=== PATIENT | male | born 1960 | race Caucasian/White ===

== ENCOUNTER → 2019-10-10 13:26 | Outpatient (CLI) | payer OTHER, SELFPAY ==
[2019-10-10 13:41] LABS: Bacteria Urine None Seen
[2019-10-10 14:19] LABS: Add Manual Diff / Slide Review NO; Basophils Absolute Auto 100 /uL (0-100); Basophils Percent Auto 0.9 % (0-2); Eosinophils Absolute Auto 200 /uL (0-450); Eosinophils Percent Auto 2.8 % (2-4); Hematocrit 47.4 % (41-53); Hemoglobin 15.7 g/dL (13.5-17.5); Lymphocytes Absolute Auto 2300 /uL (1100-4500); Lymphocytes Percent Auto 31.3 % (25-40); Mean Corpuscular HGB Conc 33.2 % (30-36); Mean Corpuscular Hemoglobin 28.9 PG (26-34); Monocytes Absolute Auto 800 /uL (0-900); Monocytes Percent Auto 10.8 % (3-14); Neutrophils Absolute Auto 4000 /uL (1500-7000); Neutrophils Percent Auto 54.2 % (50-75); Platelet Count 224 X10^3/uL (150-400); Red Blood Cell Count 5.45 X10^6/uL (4.5-5.9); White Blood Cell Count 7.4 X10^3/uL (4.5-11.0)
[2019-10-10 14:25] LABS: Appearance Urine UA CLEAR; Bilirubin Urine UA NEGATIVE (NEGATIVE); Color Urine UA YELLOW; Glucose Urine UA NEGATIVE (Negative); Ketones Urine UA NEGATIVE (NEGATIVE); Leukocyte Esterase Urine UA NEGATIVE (NEGATIVE); Nitrite Urine UA NEGATIVE (Negative); Occult Blood Urine UA NEGATIVE (Negative); Protein Urine UA NEGATIVE (Negative); Urobilinogen Urine UA 0.2 E.U./dL (0.2); pH Urine UA 5.5 (4.5-8.0)
[2019-10-10 14:31] LABS: Culture Indicated Urine Cult Not Indicated; RBC Urine 0-1/HPF (0-5/HPF); Squamous Epithelial Cell Urine 1-5 /HPF (0-5/HPF); WBC Urine 0-1/HPF (0-5/HPF)
[2019-10-10 14:38] LABS: Hemoglobin A1C% w Est Avg Glu 6.8 % (4.0-6.0)
[2019-10-10 15:02] LABS: BUN Creatinine Ratio 29.5 (6-22); Blood Urea Nitrogen 23 mg/dL (9-20); Calcium 9.3 mg/dL (8.4-10.2); Carbon Dioxide 22 mmol/L (22-32); Chloride 103 mmol/L (98-107); Estimated Glomerular Filt Rate > 60.0 mL/min (>60); Glucose 113 mg/dL (80-110); HEMOLYSIS < 15 (0-50); Potassium 4.5 mmol/L (3.4-5.1); Sodium 135 mmol/L (137-145)
== END ==
PROVIDERS: PCP Family Medicine; Referring Provider Family Medicine; Visit Provider Orthopaedic Surgery
DX: Z01.818 Encounter for other preprocedural examination (principal); R73.9 Hyperglycemia, unspecified; N39.0 Urinary tract infection, site not specified
CPT/HCPCS: 36415; 80048; 81001; 83036; 85025; 93005

== ENCOUNTER → 2019-10-22 09:28 | Outpatient (CLI) | payer OTHER, SELFPAY ==
[2019-10-24 13:09] LABS: COVID19 Sendout Not Detected (Not Detect)
== END ==
PROVIDERS: PCP Family Medicine; Visit Provider Nurse Practitioner
DX: Z11.59 Encounter for screening for other viral diseases (principal)
CPT/HCPCS: 87635

== ENCOUNTER 2019-10-25 05:59 | Day surgery (SDC) | payer OTHER, SELFPAY ==
[2019-10-20 10:56] VITALS: BMI 37.5
[2019-10-25] VITALS (18 sets, daily range): BP systolic 114–174; BP diastolic 73–113; PULSE 72–112; RESP 8–20; TEMP 36.1–37.1; O2SAT 89–96; BMI 37.5
--- NOTE | 2019-10-25 | DI.RAD.S_ITS ---
PROCEDURE: XR PELVIS 1-2V INDICATIONS: INTER OP TECHNIQUE: 1 view of the lower pelvis acquired. COMPARISON: None. FINDINGS: Single intraoperative image demonstrating left hip arthroplasty components in expected intraoperative alignment. Dictated by: William Curry M.D. on 10/25/2019 at 12:48 Approved by: William Curry M.D. on 10/25/2019 at 12:48
--- NOTE | 2019-10-25 06:00 | DI.RAD.S_ITS ---
PROCEDURE: XR HIP W PEL IF DONE LT 2V INDICATIONS: post op. TECHNIQUE: AP pelvis with lateral view(s) of the left hip(s). COMPARISON: None. FINDINGS: Bones: No fractures or dislocations. Pelvic ring appears intact. No suspicious bony lesions. Severe right hip joint degeneration with [id number] appearance. Soft tissues: The visualized bowel gas pattern is normal. No suspicious soft tissue calcifications. IMPRESSION: Expected postoperative appearance. Dictated by: William Curry M.D. on 10/25/2019 at 10:59 Approved by: William Curry M.D. on 10/25/2019 at 11:00
[2019-10-25] MEDS: PREGABALIN 75 MG CAPSULE PO (06:58)
[2019-10-25] MEDS: CELECOXIB 200 MG CAPSULE PO (06:58)
[2019-10-25] MEDS: ACETAMINOPHEN 325 MG TABLET 975 MG PO (06:58)
[2019-10-25] MEDS: LACTATED RINGERS 1,000 ML 42 ML IV ×2 (06:59→09:40)
[2019-10-25] MEDS: VANCOMYCIN 1,000 MG/200 ML PIGGYBACK 200 MG IV (07:00)
--- NOTE | 2019-10-25 07:47 | PM.PREOP ---
Pre-operative Note COVID-19 COVID-19 status: Negative Interval Note History & Physical reviewed/Exam performed by Physician: Yes Changes to H&P: No
--- NOTE | 2019-10-25 07:48 | PM.OP.1 ---
Operative Date/Time/Diagnoses Date of procedure: 10/25/19 Time of procedure: 07:58 Pre-op diagnosis: left hip OA Post-op diagnosis: same Procedure & Clinicians Procedure: left total hip arthroplasty Same procedure as scheduled: Yes Indications: The patient has had progressively worsening left hip pain with radiographic changes consistent with arthritis. Non-operative management has failed and the patient has requested total hip replacement. The risks, benefits and alternatives to surgery were discussed with the patient prior to proceeding. Risks discussed included, but were not limited to, failure to relieve pain, leg length discrepancy, dislocation, stiffness, infection, nerve damage, deep venous thrombosis, pulmonary embolism, stroke, coma, heart attack, permanent paralysis and , as well as the potential need for eventual revision of the prosthetic. Surgeon: Yeny Garza Draw Bench Operator Helper: Malcolm Gasca Anesthesia Type: General and Spinal Operative Notes Findings: Severe left hip osteoarthritis, adequate stability Closure Type: primary Specimen(s): none sent Prosthetic devices, grafts, tissues, transplants, or devices: The Garza [employer] Nephew 58 mm R3 cup, one 20 mm screw, neutral poly liner, 9 high offset anthology a fit, +0 head Applied: drain(s) Estimated Blood Loss (mL): 250 Blood products transfused: none Procedure in detail: The patient was seen in the pre-operative area, where the patient identified the left hip as the operative site and this was marked with my initials. The patient received pre-operative antibiotics and was taken to the operating room and placed on the operative table in the right lateral decubitus position after satisfactory anesthesia. A director multimedia out was performed. The left leg was prepared from the ankle to the iliac crest with ChloroPrep in the usual fashion and draped through sterile drapes. The hip was approached through an approximately 20 cm incision centered over the greater trochanter and curving gently posteriorly as it went proximally. This was carried sharply to the fascia eitan, which was divided and retracted with a self retaining retractor. The trochanteric bursa was excised with care being taken to avoid the sciatic nerve, which was identified and protected throughout the case. The short external rotators were incised and the capsulomuscular flap was raised and tagged for later repair. The hip was dislocated, and a femoral neck osteotomy performed approximately 15 mm above the lesser trochanter. Retractors were placed around the femur. The canal was opened with a box cutting osteotome, followed by a T handled reamer and a lateralizing reamer. The chili pepper broach was then used, followed by sequential broaching until there was good stability of the broach in the femur. Retractors were placed to expose the acetabulum. The labrum and central soft tissues were removed. Reaming was performed initially going up in 2 mm increments, then 1 mm increments until good bite was obtained with an odd sized reamer. The cup 1 mm larger than the last reamer was then inserted using the appropriate anteversion guides. It was felt to be in a good position and additional fixation was achieved with a single screw. A trial neutral liner was placed. The broach was placed in the canal. A trial head and neck were then placed and the hip relocated and checked for leg length and stability. An intraoperative film confirmed the component position and no evidence of fracture. The patient was stable in the position of sleep, of squatting, and could be put through a range of motion with 45 degrees internal rotation without dislocation. At 90 degrees flexion, internal rotation to 80? was possible before dislocation. I did a trial with both a standard and a high offset and took an x-ray with the high offset. Had good stability with both but was a little more stable with a high offset. This was felt to be satisfactory and the appropriate components were opened, and the trials were removed. The acetabular liner was impacted into position. The final stem was then impacted into the prepared femoral canal. A brief Betadine soak was performed while trialing with head options. The hip was meticulously irrigated with normal saline. Finally the femoral head was impacted onto the stem. The acetabulum was cleared of all material and the hip relocated one final time. The capsulomuscular flap was then repaired to the greater trochanter though an awl hole using the tag sutures. The short external rotators were repaired with a nonabsorbable suture. A deep drain was placed and brought out anteriorly. The fascia eitan was closed with Vicryl. The subcutaneous layer was closed with barbed sutures and SteriStrips. An dg dressing was applied and the patient was taken to recovery having tolerated the procedure well. Complications: none Post-operative Condition: stable Disposition: Acute Care Plan for aftercare: The patient will be maintained on a standard total hip replacement protocol with weight bearing as tolerated and posterior hip precautions. The patient will receive Aspirin and sequential compression devices for DVT prophylaxis. The patient will be discharged home when safe for the home environment.
[2019-10-25] MEDS: CEFAZOLIN 2 GM/100 ML FROZ.PIGGY IV (08:06)
[2019-10-25] MEDS: TRANEXAMIC ACID 1,000 MG VIAL 1000 MG INJ ×2 (08:20→09:31)
--- NOTE | 2019-10-25 08:32 | SUR.OPER ---
Lateral on padded OR bed. Gel axillary roll. Arms secured on padded armboard with pillow supporting top arm. Padded hip positioner braces x4 - anterior and posterior chest and pelvis. Additional gel pad used anterior pelvis. Gel pad under bottom leg from knee to foot and secured with tape over sheet.
[2019-10-25] MEDS: BUPIVACAINE LIPOSOME 266 MG/20 ML VIAL INJ (08:38)
[2019-10-25] MEDS: BUPIVACAINE 0.25% W/ EPI 30 ML VIAL 60 ML INJ (08:38)
[2019-10-25] MEDS: SODIUM CHLORIDE IRRIG SOLUTION 250 ML, POVIDONE-IODINE SPONGE STICKS 1 APPLIC IRR (08:41)
[2019-10-25] MEDS: fentaNYL 100 MCG/2 ML INJ IV (10:37)
[2019-10-25] MEDS: hydrOXYzine 50 MG/ML INJ 25 MG IM (10:38)
[2019-10-25] MEDS: OXYCODONE IR 5 MG TABLET PO ×2 (10:43→11:05)
--- NOTE | 2019-10-25 11:18 | SUR.PHASEI ---
Patient taken up to room 205 with all belongings. Left in stable condition with receiving RN at bedside
[2019-10-25] MEDS: LACTATED RINGERS 1,000 ML 125 ML IV ×2 (13:44→20:19)
[2019-10-25] MEDS: IBUPROFEN 400 MG TABLET PO ×2 (13:45→17:16)
--- NOTE | 2019-10-25 14:07 | CM.DANOTE ---
Discharge Planning/Care Management DCP: assessment: case received and discussed in Team Rounds. Pt was not yet arrived to room 205 from PACU. Pt is a 59 year old male who admitted this morning for a scheduled L SANCHEZ. Surgeon: Dr. Jacob Garza Payer: [facility] PCP: Samantha Lopez Pt has identified his d/c plan in his pre-op assessment: 10/19 with KELSEY Yung/see that template below: as home with Rafael's supportive care. Note: single story home P: DCP team will be following to assist with any d/c needs that may arise. Expect PT will see pt either later this afternoon or tomorrow for first eval. Dr. Garza states pt will be ready for d/c once he is stable to return to the home setting. CM Discharge Assessment Start: 10/25/19 14:06 Freq: Status: Active Protocol: Document 10/25/19 14:06 ITV (Rec: 10/25/19 14:07 ITV [id number]) Discharge Planning Assessment Advance Directives? No History Provided By Medical Record Prior Living Arrangements House Household Members spouse Review Status In Process Pre-Anesthesia Assessment Start: 10/20/19 10:56 Freq: Status: Active Protocol: Document 10/20/19 10:56 CAB (Rec: 10/20/19 11:24 CAB [id number]) Pre-Anesthesia Assessment Patient Information Reviewed Via Phone Assessment Assessment Completed With Patient Diagnostic Results BMP/CMP,CBC,EKG,Urinalysis Comment Lsbs/EKG @ 10/10/19 COVID screen @ 10/22/19 Primary Care Provider Samantha Lopez Seen Specialist in Last 12 Months Yes Specialist Seen Orthopedist,Urologist Primary Language Cypriot Brush Worker Required No Height 185.42 cm Weight 129.274 kg Body Mass Index (BMI) 37.5 Hearing Ability Normal Visual Assist Glasses Dentition Type Teeth, Natural Present Barriers to Learning Memory Hx Anesthesia Reactions No Hx Family Anesthesia Reaction No Hx Malignant Hyperthermia No Hx Blood Transfusions No Anesthesia Review Requested No alcohol intake former Alcohol Intake Frequency Other: Stopped 30 years ago Smoking Status Never smoker Substance Use Type does not use Pain Present Pain Reported Musculoskeletal Symptoms Abnormal Gait,Difficulty Walking,Joint Pain History of Falling (Recent or History of No ) Patient is completely paralyzed or No completely immobile Prosthesis or Orthotic Device Front Wheel Walker Mental Status Oriented to own ability Is patient on oxygen? No Does patient have BRYANT/SOB No Hx Sleep Apnea No Currently Taking a Beta Alex No Can You Climb a Flight of Stairs Without Yes SOB Hx Chest Pain No Hx SOB No Hx Syncope or Dizziness No Anti-Coagulant Therapy No Has a Licensed Occupational Therapy Assistant No Cardiac Testing No Hx Pacemaker/ICD No Pacemaker Rep Required? No Cardiac Clearance Received Not Applicable Diet Type At Home Regular dysphagia No Gastrointestinal Symptoms Reflux Urinary Catheter Present No Hx Urinary Self Catheterization No Diabetes Pt states pre-diabetes HgbA1C 6.8 Hx Drug Resistant Organism No Presence of External or Internal Medical Yes: Bilat partial knee Devices prosthesis Have you had any close contact with No someone diagnosed with COVID-19? Marital Status Lives With spouse Prior Living Arrangements House Number of Floors (Floors) One Floor Support System Spouse Does the Patient Have Assistance After Yes Surgery Patient Discharge Plan Description Return Home Comment Pt advised one night length of stay per surgeon Feels Safe in Current Environment Yes Been Physically Hurt or Threatened By a No Person in Current Environment Do you have thoughts of harming yourself None or others? Are you currently considering suicide? No Do you have a plan to hurt yourself or No Plan others? Do You Have Any Spiritual Beliefs That No May Affect Your HC Choices? Do You Have Any Cultural Practices That No May Affect Your HC Choices? Comment Evangelical Who Can We Speak to About Patient's Care Family, friends Identifying Code for Release of Patient Declines to issue Information Health Care Proxy/Next of Kin Rafael () Health Care Proxy Emergency Contact Name Rafael () Emergency Contact Advance Directives? No Power of Button Sewer No PAC Instructions Durable medical equipment, Medications to take/avoid, Nasal antibiotic,No ETOH/ petroleum product on skin DOS, NPO,Pre-surgical wash,Sturdy shoes/comfortable clothes,Do not bring valuables and remove jewelry
--- NOTE | 2019-10-25 14:17 | PC.NURSE ---
1200 Patient oxygen saturation dropped to high 70s and mid 80s while sleeping. Aroused patient verbally with success, instructed to take deep breaths. Oxygen saturation back to low 90s. O2 increased to 3LPM temporarily. 1400 Patient alert, sitting up. Oxygen lowered back to 2LPM.
[2019-10-25] MEDS: ACETAMINOPHEN 325 MG TABLET 650 MG PO ×2 (14:42→20:18)
--- NOTE | 2019-10-25 16:19 | PT.IIE ---
Current Diagnoses Unilateral primary osteoarthritis, left hip (10/25/19) Surgery Performed Operation Date: 10/25/19 07:45 Actual Procedures p Total Hip Arthroplasty(Left) - Yeny Garza MD Surgical History (Last Updated 10/20/19 @ 11:13 by Gina Lucia, RN) History of vasectomy (Acute) Hx of elbow surgery (Acute) Hx of eye surgery (Acute) Hx of hernia repair (Acute) Medical History (Last Updated 10/20/19 @ 11:13 by Gina Lucia RN) GERD (gastroesophageal reflux disease) (Acute) History of prosthetic unicompartmental arthroplasty of both knees (Acute) HLD (hyperlipidemia) (Acute) Osteoarthritis (Acute) Pre-diabetes (Acute) Prostatitis (Acute 2020) Skull fracture (Acute) Physical Therapy Inpatient Evaluation/Re-Eval M1 PT/OT-IP Prior Functional Status Start: 10/25/19 14:58 Freq: NEEDED Status: Active Protocol: Document 10/25/19 16:00 HH (Rec: 10/25/19 16:19 [id number]) Medical Review Prior Functional Status Medical History Reviewed Yes Diet/Fluid Consistency Regular Communication able to make needs known. no deficits noted. Mobility and Gait FWW at all times. Very limited mobility for the past few months. Used power scooter for grocery shop. Activities of Daily Living and IADL's independent with FWW for ADLs. Had difficulty getting into bathtub who needed to hang on to wall for support. helps in house cleaning, laundry and cooking mostly. Pt was able to drive. Social History Household Members spouse Living Arrangements House Number of Floors (Floors) One Floor Number of Stairs To Enter/Railing? 1 PF step to enter Pt will sleep in his recliner Home Environment Standard Height Toilet,Tub/ Shower Home Equipment Front Wheel Walker,Straight Cane,Raised Toilet Seat Without Armrests,Long Handled Shoe Horn,Grab Bars In Shower Employment Status Retired Additional Social History Comment Pt lives with his Rafael who is active and independent. 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 Pt also has neighbors to assist if needed. Pt will participate outpatient PT in [place] [id number] PT-IP Current Condition Start: 10/25/19 14:58 Freq: NEEDED Status: Active Protocol: Document 10/25/19 16:00 HH (Rec: 10/25/19 16:19 [id number]) Physical Therapy Current Condition Current Condition Evaluation Date 10/25/19 Treatment Diagnosis L SANCHEZ (posterior approach), difficulty in walking Onset Date 10/25/19 Precautions Posterior Hip Precautions No Hip Flexion > 90 degrees,No Hip Internal Rotation,No Hip Adduction Weight Bearing Status Weight Bearing Status Weight Bear as Tolerated M3 PT-IP Subjective Start: 10/25/19 14:58 Freq: NEEDED Status: Active Protocol: Document 10/25/19 16:00 (Rec: 10/25/19 16:19 [id number]) Subjective Physical Therapy Visit Type Type Initial Evaluation Visit Start Time 15:10 Visit Stop Time 15:36 Total Visit Minutes 26 Number of DIRECT MAIL MARKETER Visits 0 Physical Therapy Visit Comments Patient Comments I am not feeling pain Patient Goals To regain his mobility and return home with assistance Therapy Pain Assessment Pain Present Pain Present Denied Pain M4 PT-IP Mobility and Gait Start: 10/25/19 14:58 Freq: NEEDED Status: Active Protocol: Document 10/25/19 16:00 (Rec: 10/25/19 16:19 [id number]) PT-Transfer Assessment Sit to and From Stand Sit to and from Stand Minimal Assistance,Use of Upper Extremities Equipment Transfer Assistive Device Gait Belt,Front Wheeled Walker Orthotic/Prosthetic Devices or Brace: No Transfers Transfer Destination Bed,Chair Transfer Technique Stand Step Pivot Transfer Ability Level of Assist Minimal Assistance Comments Mobility Comments Pt was standing up finishing voiding with an urinal with nursing staff assist upon PT arrival. pt was handed off to this PT to cont assessment. BP at 134/93 HR 114. Pt stood with a flexed posture and needed cues to facilitate upright position. He then amb around the room with step to pattern and WBOS. He was also able to complete another 120 ft of amb with FWW CGA. He was somewhat impulsive and needed cues to slow down and walker management during turns and transfers. He placed his FWW on the side and walked sideway to chair after he returned to his room, followed by a poor eccentric control for descending. Spent time educating pt not to hurry which increases fall risk. Pt understood well and he was also able to recall all post op precautions. Call light placed within reach. BP 125/89 HR 116. Notified nursing pt's unusual elevated HR. Gait Assessment Gait Gait Assistance Required: Minimum Assistance Distance (Feet) 140 Able to Maintain Weight Bearing Status Yes During Gait Assistive Devices Assistive Device Gait Belt,Front Wheeled Walker Orthotic/Prosthetic Devices or Brace: No Gait Deviations General Gait Pattern Antalgic,Decreased Stride Length,Decreased Feet Clearance,Flexed Trunk,Lateral Trunk Lean,Narrow Based Gait, Step-to Gait Factors Limiting Gait Function Factors Limiting Gait Function Decreased Activity Tolerance, Decreased Strength,Limited Range of Motion,Pain,Poor Balance,Poor Safety Awareness, Respiratory Distress Comments Gait Comments see mobility comments. Stair Climbing Assessment Comments Stair Climbing Comments unable to assess. pt has a 4inch PF step only PT-Balance Assessment Sitting Balance and Reactions Static Sitting Balance Ability Normal Dynamic Sitting Balance Ability Good Standing Balance and Reactions Static Standing Balance Ability Good Dynamic Standing Balance Ability Fair Device Used FWW M5 PT-IP Objective Assessments Start: 10/25/19 14:58 Freq: NEEDED Status: Active Protocol: Document 10/25/19 16:00 (Rec: 10/25/19 16:19 [id number]) Orientation Orientation/Cognition Level of Alertness Alert Orientation Name,Age,Birthday,Month,Date, Year,Day of Week,Place, Situation Language Function Ability No Deficits Noted Safety Awareness Decreased Safety Awareness Memory Description No Deficits Noted Gross Range of Motion Upper Extremity ROM Assessment Within Functional Limits Lower Extremity ROM Assessment Within Functional Limits Strength Upper Extremity Strength Assessment Within Functional Limits Lower Extremity Strength Assessment Left Impaired Comments Strength Comments pt presents a flexed posture with L hip and discomfort for hip extension Coordination Assessment Gross Coordination Gross Coordination WNL Sensation Assessment Sensation Gross Sensation WNL Muscle Tone Muscle Tone WNL Yes M6 PT-IP Treatment Start: 10/25/19 14:58 Freq: NEEDED Status: Active Protocol: Document 10/25/19 16:00 (Rec: 10/25/19 16:19 [id number]) Physical Therapy Treatment Exercises Exercises Gluteal Sets,Quad Sets Education Education Provided Precautions,Weight Bearing Status,Post-Op Packet,Safety M7 PT-IP Assessment and Plan Start: 10/25/19 14:58 Freq: NEEDED Status: Active Protocol: Document 10/25/19 16:00 (Rec: 10/25/19 16:19 [id number]) PT Summary Assessment and Plan Potential Rehabilitation Potential Excellent Status of Condition at Evaluation Stable Summary Impairments Pain,ROM,Strength,Balance,Bed Mobility,Transfers,Gait, Activity Tolerance Assessment Summary This is a low complexity evaluation for this 59yo male s/p POD1 L SANCHEZ with posterior approach. Pt's PLOF has quite limited mobility who needed to use FWW at all times and assisted most IADLs. However, pt was able to complete 120 ft of amb w FWW CGA/min A, min A for transfers but he did need cues for walker management and gait mechanics. Pt has good understanding with post op precautions. Expect pt to return home with assistance and outpatient PT. Goals Bed Mobility Goal Standby Assistance Transfer Goal Standby Assistance,Front Wheeled Walker Gait Goal Standby Assistance,Front Wheel Walker Gait Distance 200 Other Goals 1 PF ZAINA to front entrace with FWW Days to Meet Goals 2 Frequency of Treatment Frequency Of Treatment Twice a Day Treatment Plan Physical Therapy Treatment Plan Bed Mobility Training,Transfer Training,Gait Training, Therapeutic Exercise,Balance Retraining,Post Op Education, Discharge Planning,Hot or Cold Pack,Neuromuscular Re-ed Other Recommendations and Next Treatment check vitals (HR) Focus review precautions mobility as anne, PF step with FWW Recommendations To Nursing Amount of Assist Needed 1 Person Assist Discharge Recommendations PT Discharge Recommendations Home with Assistance, Outpatient PT Other Discharge Recommendations tub transfer bench Transportation Needs at Discharge Private Vehicle
[2019-10-25] MEDS: CEFAZOLIN VIAL 3 GM in SODIUM CHLORIDE 0.9% 100 ML 200 ML IV (16:55)
--- NOTE | 2019-10-25 17:07 | PC.NURSE ---
Addendum entered by Eli Anton R.N. 10/25/19 20:28: Relatively uneventful evening. Pt ambulated in room. Denies any issues w/discomfort. IVF continue as per orders. Dsg CDI. HV intact/patent. Call light w/in reach, bed alarm on for pt safety. Continue w/plan of care. Original Note: Pt Ambulated in hallway w/PT w/out incidence. Denies any discomfort when asked. Lungs clear, SpO2 97% RA YULIANA dsg left hip CDI, Hemavac intact/patent. IV LR @ 100cc/hr infusing via pump into right hand w/o incidence. Sitting in chair for dinner. Call light w/in reach, pt calls appropriately for needs.
[2019-10-25] MEDS: ATORVASTATIN 20 MG TABLET PO (20:18)
[2019-10-25] MEDS: ASPIRIN EC 81 MG TABLET PO (20:18)
[2019-10-25] MEDS: DOCUSATE 100 MG CAPSULE PO (20:18)
[2019-10-26] MEDS: CEFAZOLIN VIAL 3 GM in SODIUM CHLORIDE 0.9% 100 ML 200 ML IV (00:06)
[2019-10-26] MEDS: IBUPROFEN 400 MG TABLET PO ×3 (00:06→08:22)
[2019-10-26 00:16] VITALS: BP 138/79; PULSE 62; RESP 18; TEMP 36.4; O2SAT 95
[2019-10-26 04:00] VITALS: BP 130/74; PULSE 75; RESP 18; TEMP 36.5; O2SAT 94
[2019-10-26 06:41] LABS: Hemoglobin 13.2 g/dL (13.5-17.5)
--- NOTE | 2019-10-26 07:36 | PM.PN.1 ---
Subjective Subjective Date Patient Seen: 10/26/19 Time Patient Seen: 07:37 Interval history: He notes that he is doing well. He did not have difficulty voiding. I some up yesterday with physical therapy. He has fairly mild left hip pain. Exam Vital Signs (past 8 hours): - 10/26/19 00:16 10/26/19 04:00 Temperature 97.6 F 97.7 F Pulse Rate 62 75 Respiratory Rate 18 18 Blood Pressure 138/79 130/74 Pulse Oximetry 95 94 Oxygen Delivery Method Room Air Oxygen Flow Rate 0 Narrative Exam Narrative: Alert oriented moving his hip well, calfs are soft bilaterally, neurologically intact distally dressing is dry Objective Labs Result Diagrams: 10/26/19 06:20 Labs: Laboratory Results - last 24 hr 10/26/19 06:20 Hgb 13.2 L Hct 40.0 L Assessment & Plan Assessment & Plan narrative: Doing well status post left total hip arthroplasty plan discharge to home. Outpatient physical therapy posterior hip precautions. Quality VTE Deep Vein Thrombosis/Pulmonary Embolism Present on Admission: No
[2019-10-26 07:52] VITALS: BP 137/85; PULSE 78; RESP 16; TEMP 36.6; O2SAT 96
--- NOTE | 2019-10-26 07:57 | PC.NURSE ---
Assess- Patient is A&Ox3, dressing to l.hip is cdi with small amount of drainage to center of dg drain dressing. He has a hemovac drain that will be taken out soon as patient will be going home. He is taking ibuprofen and tylenol for discomfort and this has been working well for him. Denies any numbness or tingling to l.extremity. CMS wnl and ppx2.
[2019-10-26] MEDS: DOCUSATE 100 MG CAPSULE PO (08:22)
[2019-10-26] MEDS: ASPIRIN EC 81 MG TABLET PO (08:22)
[2019-10-26] MEDS: ACETAMINOPHEN 325 MG TABLET 650 MG PO (08:23)
--- NOTE | 2019-10-26 11:43 | PT.IPTN ---
Addendum entered and electronically signed by Germania Cast PTA 10/26/19 12:28: Pt was seated in chair, had call light and all needs in reach with and nurse in room when left. Original Note: Current Diagnoses Unilateral primary osteoarthritis, left hip (10/25/19) Surgery Performed Operation Date: 10/25/19 07:45 Actual Procedures p Total Hip Arthroplasty(Left) - Yeny Garza MD Physical Therapy Treatment Note M2 PT-IP Current Condition Start: 10/25/19 14:58 Freq: NEEDED Status: Active Protocol: Document 10/25/19 16:00 HH (Rec: 10/25/19 16:19 HH [id number]) Physical Therapy Current Condition Current Condition Evaluation Date 10/25/19 Treatment Diagnosis L SANCHEZ (posterior approach), difficulty in walking Onset Date 10/25/19 Precautions Posterior Hip Precautions No Hip Flexion > 90 degrees,No Hip Internal Rotation,No Hip Adduction Weight Bearing Status Weight Bearing Status Weight Bear as Tolerated M3 PT-IP Subjective Start: 10/25/19 14:58 Freq: NEEDED Status: Active Protocol: Document 10/26/19 11:23 SP (Rec: 10/26/19 12:19 SP [id number]) Subjective Physical Therapy Visit Type Type Treatment Note Visit Start Time 11:23 Visit Stop Time 11:43 Total Visit Minutes 20 Notes attended, completed caregiver training and provided physical assist needed throughout treatment. Number of DEVULCANIZER OPERATOR Visits 1 Physical Therapy Visit Comments Patient Comments I am feeling 5/10 pain in L hip but want to get up and complete stair training to be able go home with my today. Patient Goals To regain his mobility and return home with assistance Therapy Pain Assessment Pain When Pain Assessed During Mobility Pain Present Pain Present Pain Reported Location left hip Intensity 5 Scale Used soreness at rest, 5/10 during mobility Description Aching,Tightness,With Movement Pain Behaviors Facial Grimacing,Moaning, Restlessness Pain Management Techniques Re-positioning,Timing of Activity with Medications M4 PT-IP Mobility and Gait Start: 10/25/19 14:58 Freq: NEEDED Status: Active Protocol: Document 10/26/19 11:23 SP (Rec: 10/26/19 12:19 SP [id number]) PT-Bed Mobility Assessment Supine to Sit Supine to Sit Standby Assistance,Head of Bed Elevated Scooting Scooting to Edge of Bed Standby Assistance PT-Transfer Assessment Sit to and From Stand Sit to and from Stand Contact Guard Assistance,Use of Upper Extremities Equipment Transfer Assistive Device Gait Belt,Front Wheeled Walker Orthotic/Prosthetic Devices or Brace: No Transfers Transfer Destination Chair Transfer Technique Pt ambulated using fWW Transfer Ability Level of Assist Contact Guard Assistance,Use of Upper Extremities Comments Mobility Comments Pt was elevated supine approx 20 deg in bed when arrived. Pt stated will be sleeping in recliner when gets home due to most comfortable sleeping on his stomach and won't be able to do for now. Sup> sit, scoot to EOB SBA. donned gait belt, sit>stand CGA with cuing for pushing up from bed to stand. Pt didn't walk as far distance into hallway today approx 90 ft total due to L hip pain, provided w/c follow but not needed, step to gait patterning initially then step over step heel toe as distance progressed with heavy BUE WB on FWW, cued upright posture. Pt was able to ascend 3 PF steps CGA by usign FWW, stable to assimulate home enterance. Pt walked back to his room, SPT to sit in chair, cued for fully backing up with FWW and slow descent into chair with good follow through. Pt reported L hip pain elevated during gait and heavy BUE WB on FWW, suggested stay with in when standing activities for safety around home. Pt is ok to return home with to assist him when medically cleared. planned to call outpt PT today to set up appts . Gait Assessment Gait Gait Assistance Required: Contact Guard Assist,1 Person Assist Distance (Feet) 90 Able to Maintain Weight Bearing Status Yes During Gait Assistive Devices Assistive Device Gait Belt,Front Wheeled Walker Orthotic/Prosthetic Devices or Brace: No Gait Deviations General Gait Pattern Antalgic,Decreased Stride Length,Decreased Feet Clearance,Flexed Trunk,Narrow Based Gait,Step-to Gait Factors Limiting Gait Function Factors Limiting Gait Function Decreased Activity Tolerance, Decreased Strength,Limited Range of Motion,Pain,Poor Balance,Poor Safety Awareness, Respiratory Distress Comments Gait Comments See mobility comments for details. Stair Climbing Assessment Evaluation Level of Assist On Stairs Contact Guard Assistance Devices Stair Climbing Assistive Devices Front Wheel Walker Technique/Endurance Stair Climbing Direction Ascend and Descend Stair Climbing Technique Step to Step Number of Steps Climbed 1 Stair Climbing Set # Repetitions (reps) 3 Comments Stair Climbing Comments See mobility comments for details. PT-Balance Assessment Sitting Balance and Reactions Static Sitting Balance Ability Normal Dynamic Sitting Balance Ability Good Standing Balance and Reactions Static Standing Balance Ability Good Dynamic Standing Balance Ability Fair Device Used FWW M5 PT-IP Objective Assessments Start: 10/25/19 14:58 Freq: NEEDED Status: Active Protocol: Document 10/25/19 16:00 HH (Rec: 10/25/19 16:19 HH [id number]) Orientation Orientation/Cognition Level of Alertness Alert Orientation Name,Age,Birthday,Month,Date, Year,Day of Week,Place, Situation Language Function Ability No Deficits Noted Safety Awareness Decreased Safety Awareness Memory Description No Deficits Noted Gross Range of Motion Upper Extremity ROM Assessment Within Functional Limits Lower Extremity ROM Assessment Within Functional Limits Strength Upper Extremity Strength Assessment Within Functional Limits Lower Extremity Strength Assessment Left Impaired Comments Strength Comments pt presents a flexed posture with L hip and discomfort for hip extension Coordination Assessment Gross Coordination Gross Coordination WNL Sensation Assessment Sensation Gross Sensation WNL Muscle Tone Muscle Tone WNL Yes M6 PT-IP Treatment Start: 10/25/19 14:58 Freq: NEEDED Status: Active Protocol: Document 10/26/19 11:23 SP (Rec: 10/26/19 12:19 SP [id number]) Physical Therapy Treatment Exercises Exercises Ankle Pumps,Gluteal Sets,Quad Sets,Heel Slides,Seated Knee Flexion/Extension Education Education Provided Precautions,Weight Bearing Status,Post-Op Packet,Safety M7 PT-IP Assessment and Plan Start: 10/25/19 14:58 Freq: NEEDED Status: Active Protocol: Document 10/26/19 11:23 SP (Rec: 10/26/19 12:19 SP [id number]) PT Summary Assessment and Plan Potential Rehabilitation Potential Excellent Status of Condition at Evaluation Stable Summary Impairments Pain,ROM,Strength,Balance,Bed Mobility,Transfers,Gait, Activity Tolerance Assessment Summary Pt was able to complete caregiver training, all mobility requiring CGA using fWW, ambulated approx 90 ft of amb with cuing for upright posture and step over step patterning. Pt has good understanding with post op precautions. Pt is ok to return home with assistance and outpatient PT when medically cleared. Goals Bed Mobility Goal Standby Assistance Transfer Goal Standby Assistance,Front Wheeled Walker Gait Goal Standby Assistance,Front Wheel Walker Gait Distance 200 Other Goals 1 PF ZAINA to front entrace with FWW- completed 10/26/19. Days to Meet Goals 2 Frequency of Treatment Frequency Of Treatment Twice a Day Treatment Plan Physical Therapy Treatment Plan Bed Mobility Training,Transfer Training,Gait Training, Therapeutic Exercise,Balance Retraining,Post Op Education, Discharge Planning,Hot or Cold Pack,Neuromuscular Re-ed Other Recommendations and Next Treatment Further distance walking, Le Focus strengthening including transfers to increase strength . Recommendations To Nursing Amount of Assist Needed 1 Person Assist Discharge Recommendations PT Discharge Recommendations Home with Assistance, Outpatient PT Other Discharge Recommendations tub transfer bench Transportation Needs at Discharge Private Vehicle
--- NOTE | 2019-10-26 12:34 | CM.DPC ---
DCP continued: EMR reviewed: HALIMA/Rn met with patient at the bedside and explained role. Patient was alert and oriented x3 during visit. patient currently lives with his Bertha, HALIMA/RN talked about d/C plan and patient and agreed that home with patients for assistance at D/C. Patient has a follow up appointment with [facility] and Follow up with his primary care provider Dr. Robles next week. No other needs noted at this time. Cm Department will be available to assist with any new D/C planning needs that may arise. Paula Garza RN
== END 2019-10-26 12:41 | disposition home or self-care (01) ==
LOC: OR 06:04 → AC 06:07
PROVIDERS: PCP Family Medicine; Referring Provider Orthopaedic Surgery; Visit Provider Orthopaedic Surgery
PROC: 0SRB0JZ Replacement of Left Hip Joint with Synthetic Substitute, Open Approach (ICD-10-PCS; CPT 27130; principal; 2019-10-25 07:45)
DX: M16.12 Unilateral primary osteoarthritis, left hip (principal)
CPT/HCPCS: 27130; 36415; 72170; 73502; 85014; 85018; 97116; 97161; C1776; C9290; J0330; J0690; J1100; J2250; J2405; J2704; J3010; J3410

== ENCOUNTER → 2019-12-10 13:03 | Outpatient (CLI) | payer OTHER, SELFPAY ==
[2019-10-25 13:08] VITALS: BMI 37.5
[2019-12-12 11:05] LABS: COVID19 Sendout Not Detected (Not Detect)
== END ==
PROVIDERS: PCP Family Medicine; Visit Provider Nurse Practitioner
DX: Z11.59 Encounter for screening for other viral diseases (principal)
CPT/HCPCS: 87635

== ENCOUNTER 2019-12-13 11:34 | Day surgery (SDC) | payer OTHER, SELFPAY ==
[2019-10-25 13:08] VITALS: BMI 37.5
[2019-12-08 15:23] VITALS: BMI 37.5
[2019-12-13 12:11] VITALS: BMI 36.9
[2019-12-13 12:20] VITALS: BP 139/95; PULSE 85; RESP 24; TEMP 37.1; O2SAT 93
[2019-12-13] MEDS: ACETAMINOPHEN 325 MG TABLET 975 MG PO (12:31)
[2019-12-13] MEDS: PREGABALIN 75 MG CAPSULE PO (12:31)
[2019-12-13] MEDS: CELECOXIB 200 MG CAPSULE PO (12:31)
[2019-12-13] MEDS: LACTATED RINGERS 1,000 ML 42 ML IV (12:33)
[2019-12-13] MEDS: VANCOMYCIN 1,000 MG/200 ML PIGGYBACK 200 MG IV (13:19)
--- NOTE | 2019-12-13 13:36 | PM.PREOP ---
Pre-operative Note COVID-19 COVID-19 status: Negative Interval Note History & Physical reviewed/Exam performed by Physician: Yes Changes to H&P: No
--- NOTE | 2019-12-13 15:13 | SUR.PREOP ---
PT SURGERY CANCELLED PER DR. RILEY. IV DC'D AND INTACT. PT DRESSED SELF AND TAKEN TO WAITING ROOM TO AWAIT ARRIVAL OF SPOUSE TO TAKE HIM HOME. PT LEFT SURGERY AREA IN STABLE CONDITION.
--- NOTE | 2019-12-13 15:23 | SUR.PREOP ---
PT LEFT SURGERY AREA AT 1515.
== END 2019-12-13 11:35 | disposition home or self-care (01) ==
LOC: OR 11:36 → AC 15:43 → OR 12-14 07:47
PROVIDERS: PCP Family Medicine; Referring Provider Orthopaedic Surgery; Visit Provider Orthopaedic Surgery
DX: M87.051 Idiopathic aseptic necrosis of right femur (principal); Z53.09 Procedure and treatment not carried out because of other contraindication
CPT/HCPCS: 27130; J2250; J2274; J2704; J3010

== ENCOUNTER → 2019-12-19 13:43 | Outpatient (CLI) | payer OTHER, SELFPAY ==
[2019-10-25 13:08] VITALS: BMI 37.5
[2019-12-19 16:35] LABS: COVID19 -Nasal RAPID Negative (Negative)
== END ==
PROVIDERS: PCP Family Medicine; Visit Provider Physician Assistant
DX: Z11.59 Encounter for screening for other viral diseases (principal)
CPT/HCPCS: 87635

== ENCOUNTER 2019-12-23 13:18 | Observation (INO) | payer OTHER, SELFPAY ==
[2019-10-25 13:08] VITALS: BMI 37.5
[2019-12-22] VITALS (12 sets, daily range): BP systolic 103–155; BP diastolic 68–98; PULSE 61–87; RESP 13–19; TEMP 35.8–36.9; O2SAT 91–97; BMI 38.0
--- NOTE | 2019-12-22 11:59 | DI.RAD.S_ITS ---
PROCEDURE: XR HIP W PEL IF DONE RT 2V INDICATIONS: interop TECHNIQUE: 2 intraoperative view(s) of the hip acquired. COMPARISON: [facility], CR, XR HIP W PEL IF DONE LT 2V, 10/25/2019, 10:15. FINDINGS: Right intraoperative temporary prosthesis is in the expected position. No unexpected fracture. Left total arthroplasty. IMPRESSION: Right intraoperative views demonstrate the temporary right hip prosthesis in the expected position. Dictated by: Franklin Ortiz M.D. on 12/22/2019 at 16:39 Approved by: Franklin Ortiz M.D. on 12/22/2019 at 16:41
[2019-12-22] MEDS: LACTATED RINGERS 1,000 ML 42 ML IV ×2 (12:15→15:32)
[2019-12-22] MEDS: PREGABALIN 75 MG CAPSULE PO (12:18)
[2019-12-22] MEDS: ACETAMINOPHEN 325 MG TABLET 975 MG PO (12:18)
[2019-12-22] MEDS: CELECOXIB 200 MG CAPSULE PO (12:18)
[2019-12-22] MEDS: VANCOMYCIN 1,000 MG/200 ML PIGGYBACK 200 MG IV (13:05)
--- NOTE | 2019-12-22 13:30 | P.OP_ITS ---
Operative Date/Time/Diagnoses Date of procedure: 12/22/19 Time of procedure: 13:59 Pre-op diagnosis: Right hip avascular necrosis Post-op diagnosis: same Procedure & Clinicians Procedure: Right total hip arthroplasty posterior approach Same procedure as scheduled: Yes Indications: The patient has had progressively worsening right hip pain with radiographic changes consistent with arthritis. Non-operative management has failed and the patient has requested total hip replacement. The risks, benefits and alternatives to surgery were discussed with the patient prior to proceeding. Risks discussed included, but were not limited to, failure to relieve pain, leg length discrepancy, dislocation, stiffness, infection, nerve damage, deep venous thrombosis, pulmonary embolism, stroke, coma, heart attack, permanent paralysis and , as well as the potential need for eventual revision of the prosthetic. Surgeon: Yeny Garza Culinary Intern: Malcolm Gasca Anesthesia Type: General and Spinal Operative Notes Findings: Severe right hip arthritis, hard bone, good stability, marked destruction of the acetabular, soft bone Closure Type: primary Specimen(s): none sent Prosthetic devices, grafts, tissues, transplants, or devices: Garza and nephew anthology A size 9 high offset, 60 mm redapt acetabulum with three 6.5 mm screws, neutral poly liner, 36+ 0 head Oxinium Applied: drain(s) Estimated Blood Loss (mL): 250 Blood products transfused: none Procedure in detail: The patient was seen in the pre-operative area, where the patient identified the right hip as the operative site and this was marked with my initials. The patient received pre-operative antibiotics and was taken to the operating room and placed on the operative table in the left lateral decubitus position after satisfactory anesthesia. A time piece repairer out was performed. The right leg was prepared from the ankle to the iliac crest with ChloroPrep in the usual fashion and draped through sterile drapes. The hip was approached through an approximately 20 cm incision centered over the greater trochanter and curving gently posteriorly as it went proximally. This was carried sharply to the fascia eitan, which was divided and retracted with a self retaining retractor. The trochanteric bursa was excised with care being taken to avoid the sciatic nerve, which was identified and protected throughout the case. The short external rotators were incised and the capsulomuscular flap was raised and tagged for later repair. The hip was dislocated, and a femoral neck osteotomy performed approximately 15 mm above the lesser trochanter. Retractors were placed around the femur. The canal was opened with a box cutting osteotome, followed by a T handled reamer and a lateralizing reamer. The chili pepper broach was then used, followed by sequential broaching until there was good stability of the broach in the femur. Retractors were placed to expose the acetabulum. The labrum and central soft tissues were removed. There was fairly severe destruction of the acetabulum with fairly large cyst anteriorly and some loss of the superior margin. There was a reasonable anterior and posterior column. The acetabulum was meticulously reamed. I specifically strip soft tissue and some free bony fragments circumferentially from around the acetabulum and especially along the anterior rim in order to provide good visualization. I then reamed at the level of the true acetabulum and meticulously reamed it up to 59 mm. There was adequate acetabular coverage. Reaming was performed initially going up in 2 mm increm ents, then 1 mm increments until good bite was obtained with an odd sized reamer. The cup 1 mm larger than the last reamer was then inserted using the appropriate anteversion guides. There was reasonable inherent stability. It was further stabilized with 2 screws. A trial neutral liner was placed. The broach was placed in the canal. A trial head and neck were then placed and the hip relocated and checked for leg length and stability. An intraoperative film confirmed the component position and no evidence of fracture. The patient was stable in the position of sleep, of squatting, and could be put through a range of motion with 45 degrees internal rotation without dislocation. At 90 degrees flexion, internal rotation to 80? was possible before dislocation. This was felt to be satisfactory and the appropriate components were opened, and the trials were removed. The acetabular liner was impacted into position. The final stem was then impacted into the prepared femoral canal. A brief Betadine soak was performed while trialing with head options. The hip was meticulously irrigated with normal saline. Finally the femoral head was impacted onto the stem. The acetabulum was cleared of all material and the hip relocated one final time. The capsulomuscular flap was then repaired to the greater trochanter though an awl hole using the tag sutures. The short external rotators were repaired with a nonabsorbable suture. A deep drain was placed and brought out anteriorly. The fascia eitan was closed with Vicryl. The subcutaneous layer was closed with barbed sutures and SteriStrips. An Aquacel Ag dressing was applied and the patient was taken to recovery having tolerated the procedure well. Complications: none Post-operative Condition: stable Disposition: Acute Care Plan for aftercare: The patient will be maintained on a standard total hip replacement protocol with weight bearing as tolerated and posterior hip precautions. The patient will receive Aspirin and sequential compression devices for DVT prophylaxis. The patient will be discharged home when safe for the home environment.
--- NOTE | 2019-12-22 13:30 | PM.PREOP ---
Pre-operative Note COVID-19 COVID-19 status: Negative Interval Note History & Physical reviewed/Exam performed by Physician: Yes Changes to H&P: No
--- NOTE | 2019-12-22 14:00 | DI.RAD.S_ITS ---
PROCEDURE: XR HIP W PEL IF DONE RT 2V INDICATIONS: RIGHT TOTAL HIP POST OP TECHNIQUE: AP pelvis with lateral view(s) of the right hip(s). COMPARISON: [facility], , XR HIP W PEL IF DONE RT 2V, 12/22/2019, 15:58. FINDINGS: Right hip arthroplasty hardware intact. Expected postoperative alignment. Postsurgical soft tissue changes. Dictated by: William Curry M.D. on 12/23/2019 at 9:18 Approved by: William Curry M.D. on 12/23/2019 at 9:47
[2019-12-22] MEDS: CEFAZOLIN 2 GM/100 ML FROZ.PIGGY IV (14:11)
[2019-12-22] MEDS: BUPIVACAINE LIPOSOME 266 MG/20 ML VIAL INJ (14:52)
[2019-12-22] MEDS: TRANEXAMIC ACID 1,000 MG VIAL 2000 MG INJ ×2 (14:52→16:45)
[2019-12-22] MEDS: SODIUM CHLORIDE IRRIG SOLUTION 250 ML, POVIDONE-IODINE SPONGE STICKS 1 APPLIC IRR (14:53)
[2019-12-22] MEDS: BUPIVACAINE 0.25% W/ EPI (PF) 10 ML VIAL 20 ML INJ (14:54)
--- NOTE | 2019-12-22 17:22 | SUR.PHASEI ---
Reported off to KELSEY Lee.
[2019-12-22] MEDS: LACTATED RINGERS 1,000 ML 125 ML IV (19:06)
[2019-12-22] MEDS: IBUPROFEN 400 MG TABLET PO ×2 (19:08→22:08)
[2019-12-22] MEDS: DOCUSATE 100 MG CAPSULE PO (22:08)
[2019-12-22] MEDS: ASPIRIN EC 81 MG TABLET PO (22:08)
[2019-12-22] MEDS: ATORVASTATIN 20 MG TABLET PO (22:08)
[2019-12-22] MEDS: ACETAMINOPHEN 325 MG TABLET 650 MG PO (22:08)
[2019-12-22] MEDS: CEFAZOLIN VIAL 3 GM in SODIUM CHLORIDE 0.9% 100 ML 200 ML IV (22:18)
[2019-12-23] VITALS (7 sets, daily range): BP systolic 113–146; BP diastolic 69–103; PULSE 73–119; RESP 16–18; TEMP 36.4–37.6; O2SAT 93–95
[2019-12-23] MEDS: IBUPROFEN 400 MG TABLET PO ×3 (01:09→21:10)
[2019-12-23] MEDS: LACTATED RINGERS 1,000 ML 125 ML IV (04:06)
[2019-12-23] MEDS: CEFAZOLIN VIAL 3 GM in SODIUM CHLORIDE 0.9% 100 ML 200 ML IV (06:09)
[2019-12-23 07:47] LABS: Hematocrit 37.8 % (41-53); Hemoglobin 12.8 g/dL (13.5-17.5)
[2019-12-23] MEDS: DOCUSATE 100 MG CAPSULE PO ×2 (08:30→21:10)
[2019-12-23] MEDS: ASPIRIN EC 81 MG TABLET PO ×2 (08:30→21:09)
[2019-12-23] MEDS: ACETAMINOPHEN 325 MG TABLET 650 MG PO ×2 (08:30→21:09)
[2019-12-23] MEDS: OXYCODONE IR 5 MG TABLET PO (08:30)
--- NOTE | 2019-12-23 09:17 | PM.DS.1 ---
History of Present Illness History of Present Illness Date Patient Seen: 12/23/19 Time Patient Seen: 09:17 Chief complaint: OPB Narrative: Pain is mild. Denies fever chills. No nausea vomiting. Patient currently working with physical therapy walking down the [place]. Discharge Providers Provider Discharge Date: 12/23/19 Primary care physician: Samantha Lopez DO Consults: 12/22/19 11:59 Consult to Anesthesiology Routine Comment: Consulting Provider: Anesthesiologist Reason for consultation: Regional block for post operative pain control 12/22/19 17:48 Consult to Discharge Planning Routine Comment: Consult to Physical Therapy Evaluate & Treat Comment: Physician Instructions: post op SANCHEZ protocol Consult to Respiratory Therapy Evaluate & Treat Comment: Physician Instructions: Evaluate and treat Discharge provider: Malcolm Gasca PA-C Summary Hospital Course Discharge Diagnosis: Right hip avascular necrosis Hospital Course: Procedure: Right total hip arthroplasty posterior approach Same procedure as scheduled: Yes Indications: The patient has had progressively worsening right hip pain with radiographic changes consistent with arthritis. Non-operative management has failed and the patient has requested total hip replacement. The risks, benefits and alternatives to surgery were discussed with the patient prior to proceeding. Risks discussed included, but were not limited to, failure to relieve pain, leg length discrepancy, dislocation, stiffness, infection, nerve damage, deep venous thrombosis, pulmonary embolism, stroke, coma, heart attack, permanent paralysis and , as well as the potential need for eventual revision of the prosthetic. Surgeon: Yeny Garza Clinical Data Abstractor: Malcolm Gasca Anesthesia Type: General and Spinal Operative Notes Findings: Severe right hip arthritis, hard bone, good stability, marked destruction of the acetabular, soft bone Closure Type: primary Specimen(s): none sent Prosthetic devices, grafts, tissues, transplants, or devices: Garza and nephew anthology A size 9 high offset, 60 mm redapt acetabulum with three 6.5 mm screws, neutral poly liner, 36+ 0 head Oxinium Applied: drain(s) Estimated Blood Loss (mL): 250 Blood products transfused: none Patient taken to the operating room yesterday for right total hip arthroplasty, posterior approach. Patient consented to the same prior to surgery. Patient back in his room recovering well and is in stable condition. Patient currently working with physical therapy. Patient is walking down the paul[place] and training to do stairs. Patient lost balance long doing 1 step. Patient almost feel but therapists were able to catch him. Otherwise without complaints. is home to assist him. Discharge home today in stable condition and after passing physical therapy in able to perform 1 stair safely. Status at Discharge Cognitive/behavioral status at discharge: at baseline, oriented Functional status at discharge: uses cane/walker Overall status at discharge: patient is progressing back to baseline Exam Vital Signs (past 8 hours): - 12/23/19 05:15 12/23/19 08:35 Temperature 97.5 F L 98.7 F Pulse Rate 73 83 Respiratory Rate 16 16 Blood Pressure 142/81 H 146/86 H Pulse Oximetry 95 93 Oxygen Delivery Method Room Air Oxygen Flow Rate 0 Narrative Exam Narrative: 59-year-old male resting comfortably at the edge of the bed in no apparent distress. Patient currently working with physical therapy and is getting up to walk down the paul[place]. Dressing is clean, dry and intact. Neurovascular status is intact distal right lower extremity. Objective Labs Result Diagrams: 12/23/19 07:33 Labs: Laboratory Results - last 24 hr 12/23/19 07:33 Hgb 12.8 L Hct 37.8 L Discharge Assessment & Plan Assessment and Plan Assessment: Patient progressing as expected status post right total hip arthroplasty, posterior approach Plan of Treatment: Patient almost fell but was caught by physical therapist when training for 1 stair. Patient will continue to work with physical therapy. Patient has is home to assist him. He does have 1 step at home. He will train with the stairs and will be discharged home today if cleared by physical therapy. Discharge Plan Discharge Plan Patient Disposition: Home Discharge orders & Medications Discharge Orders: Discharge (Order); Ordered 12/23/19 Ordered By: Malcolm Gasca Prescriptions: New acetaminophen 325 mg Tablet 650 mg PO TID Qty: 60 RF: 0 aspirin 81 mg Tablet,Delayed Release (Dr/Ec) 81 mg PO BID Qty: 60 RF: 0 ibuprofen 400 mg Tablet 400 mg PO Q4H Qty: 60 RF: 0 docusate sodium [DOK] 100 mg Capsule 100 mg PO BID Qty: 20 RF: 0 oxycodone 5 mg Tablet 5 mg PO Q3HR PRN (Reason: Pain, Moderate (4-6)) Qty: 60 RF: 0 Continued atorvastatin 20 mg Tablet 20 mg PO BEDTIME RF: 0 omeprazole 20 mg Tablet,Delayed Release (Dr/Ec) 20 mg PO DAILY PRN (Reason: Acid Reflux) RF: 0 Discontinued meloxicam 15 mg Tablet 15 mg PO DAILY RF: 0 Follow up/Referrals: Samantha Lopez DO [Primary Care Provider] - Yney Garza MD [Physician] - (1 week for YULIANA dressing check) Diet/Activity/Treatments Diet: Diet as Tolerated Activity: WBAT, Posterior hip precautions Cold/Heat Therapy: ice as needed Skin/Wound/Dressing Care Report to your healthcare provider any signs of infection, such as:: chills, fever, increased pain, unusual drainage and unusual redness Dressing: keep clean and dry Visit Report/Discharge Packet Instructions: DI for Hip Replacement Stand Alone Forms: Surgery Discharge Discharge Data Primary Care Provider: Samantha Lopez Attending Provider: Yeny Garza
--- NOTE | 2019-12-23 09:53 | CM.DANOTE ---
Discharge Planning/Care Management DCP: assessment: case received, EMR reviewed, dc to home order noted by derik Gasca. Discussed in Team Rounds. PT to see pt for first time today. Pt is a 59 year old mael who admitted yesterday for a scheduled joint surgery: Surgeon: Dr. Jacob Garza Payer: [facility] A check in now show, after Rounds, shows that pt did well in first PT session and is on track for home today with spouse support. He still has to work on steps. Will be following. CM Discharge Assessment Start: 12/23/19 09:30 Freq: Status: Active Protocol: Document 12/23/19 09:31 ITV (Rec: 12/23/19 09:31 ITV [id number]) Discharge Planning Assessment Advance Directives? No History Provided By Medical Record Household Members spouse Discharge Plan Home Document 12/23/19 09:52 ITV (Rec: 12/23/19 09:53 ITV [id number]) Discharge Planning Assessment Advance Directives? No History Provided By Medical Record Household Members spouse Discharge Plan Home Document 12/23/19 09:52 ITV (Rec: 12/23/19 09:53 ITV [id number]) Discharge Planning Assessment Advance Directives? No History Provided By Medical Record Household Members spouse Discharge Plan Home Document 12/23/19 09:52 ITV (Rec: 12/23/19 09:53 ITV [id number]) Discharge Planning Assessment Advance Directives? No History Provided By Medical Record Household Members spouse,family Comment spouse Bertha Is patient alert and oriented? Yes Discharge Plan Home Review Status In Process
--- NOTE | 2019-12-23 11:22 | CM.DANOTE ---
Addendum entered by Concepción Jha LPN 12/23/19 11:39: Met with pt. Introduced self and role. Pt confirms that he had a scare on the stairs. I would have hit the ground, it took 4 people to catch me. I do not feel comfortable going home today. It would be terrible to fall at home. Discussed ? of HH as Jerry had wondered if this would be helpful. Pt said he did OUTPT PT when he had his L SANCHEZ in October and says he is comfortable knowing what to do re exercises etc so does not think this would be helpful. He just wants to make sure he is stable before he discharges home and anticipates staying until tomorrow and likely having more PT at that time. PT Jerry confirms that RN Geraldo is aware and very much agrees to same. P: home when cleared by PT and ortho clinic followup. 's supportive assist. Will follow up prn tomorrow. Original Note: Discharge Planning/Care Management DCP: assessment: case received, EMR reviewed and d/c order noted. Discussed in Team Rounds. PT planned initial eval this morning. Pt is a 59 year old male who admitted yesterday for a scheduled R hip surgery. Surgeon: Dr. Jacob Garza Payer: [facility] Was just updated by PT Jerry. He reports that pt was mobilizing will this morning but did have a loss of balance while doing step training and with ortho PA Cark right there observing event. Plan is now for a d/c to home setting when cleared by PT. Jerry confirms he is not yet cleared and may need to stay on until tomorrow. Will check in now with pt. CM Discharge Assessment Start: 12/23/19 09:30 Freq: Status: Active Protocol: Document 12/23/19 09:31 ITV (Rec: 12/23/19 09:31 ITV [id number]) Discharge Planning Assessment Advance Directives? No History Provided By Medical Record Household Members spouse Discharge Plan Home Document 12/23/19 09:52 ITV (Rec: 12/23/19 09:53 ITV [id number]) Discharge Planning Assessment Advance Directives? No History Provided By Medical Record Household Members spouse Discharge Plan Home Document 12/23/19 09:52 ITV (Rec: 12/23/19 09:53 ITV [id number]) Discharge Planning Assessment Advance Directives? No History Provided By Medical Record Household Members spouse Discharge Plan Home Document 12/23/19 09:52 ITV (Rec: 12/23/19 09:53 ITV [id number]) Discharge Planning Assessment Advance Directives? No History Provided By Medical Record Household Members spouse,family Comment spouse Bertha Is patient alert and oriented? Yes Discharge Plan Home Review Status In Process Document 12/23/19 11:21 ITV (Rec: 12/23/19 11:22 ITV [id number]) Discharge Planning Assessment Advance Directives? No History Provided By Medical Record Household Members spouse Comment spouse Bertha Is patient alert and oriented? Yes Discharge Plan Home Review Status In Process
--- NOTE | 2019-12-23 12:12 | PT.IIE ---
Current Diagnoses Idiopathic aseptic necrosis of right femur (12/22/19) Surgery Performed Operation Date: 12/22/19 13:45 Actual Procedures p Total Hip Arthroplasty(Right) - Yeny Garza MD Surgical History (Last Updated 10/20/19 @ 11:13 by Gina Lucia RN) History of vasectomy (Acute) Hx of elbow surgery (Acute) Hx of eye surgery (Acute) Hx of hernia repair (Acute) Medical History (Last Updated 10/20/19 @ 11:13 by Gina Lucia RN) GERD (gastroesophageal reflux disease) (Acute) History of prosthetic unicompartmental arthroplasty of both knees (Acute) HLD (hyperlipidemia) (Acute) Osteoarthritis (Acute) Pre-diabetes (Acute) Prostatitis (Acute 2020) Skull fracture (Acute) Physical Therapy Inpatient Evaluation/Re-Eval M1 PT/OT-IP Prior Functional Status Start: 12/23/19 08:26 Freq: NEEDED Status: Active Protocol: Document 12/23/19 10:27 DE (Rec: 12/23/19 11:31 DE [id number]) Medical Review Prior Functional Status Medical History Reviewed Yes Diet/Fluid Consistency Regular Communication WNL. No deficits noted. Able to make needs known. Mobility and Gait Modified IND with use of FWW for both community and home amb. Pt was unable to amb more than 2 blocks. Pt does grocery shopping on a scooter. Activities of Daily Living and IADL's Pt is IND but notes that he has difficulty with dressing himself, getting to and from toilet, and getting in and out of shower. Pt's usually does cooking and cleaning. Prior Functional Level (Other details) Hx of L SANCHEZ posterior approach in October 2019 Social History Household Members spouse Living Arrangements House Number of Floors (Floors) One Floor Number of Stairs To Enter/Railing? 1 PF ZAINA Home Environment Standard Height Toilet,Tub/ Shower Home Equipment Front Wheel Walker,Straight Cane,Raised Toilet Seat Without Armrests,Long Handled Shoe Horn,Grab Bars In Shower Employment Status Retired Additional Social History Comment Pt lives with his , who works from home and will be available to assist him at home. Pt also has neighbors who can assist if needed. M2 PT-IP Current Condition Start: 12/23/19 08:26 Freq: NEEDED Status: Active Protocol: Document 12/23/19 10:27 DE (Rec: 12/23/19 11:31 DE [id number]) Physical Therapy Current Condition Current Condition Evaluation Date 12/23/19 Treatment Diagnosis R SANCHEZ; Difficulty with walking Onset Date 12/22/19 Precautions Posterior Hip Precautions No Hip Flexion > 90 degrees,No Hip Internal Rotation,No Hip Adduction Weight Bearing Status Weight Bearing Status Weight Bear as Tolerated M3 PT-IP Subjective Start: 12/23/19 08:26 Freq: NEEDED Status: Active Protocol: Document 12/23/19 10:27 DE (Rec: 12/23/19 11:31 DE [id number]) Subjective Physical Therapy Visit Type Type Initial Evaluation Visit Start Time 08:53 Visit Stop Time 09:35 Total Visit Minutes 42 Notes SPT Jean led the session under direct supervision of PT Jerry throughout the entire session. Number of INDEPENDENT MARKETING CONSULTANT Visits 0 Physical Therapy Visit Comments Patient Comments Pt is agreeable to do PT. Patient Goals To return home. M4 PT-IP Mobility and Gait Start: 12/23/19 08:26 Freq: NEEDED Status: Active Protocol: Document 12/23/19 10:27 DE (Rec: 12/23/19 11:31 DE [id number]) PT-Bed Mobility Assessment Supine to Sit Supine to Sit Contact Guard Assistance, Bedrails Scooting Scooting to Edge of Bed Contact Guard Assistance PT-Transfer Assessment Sit to and From Stand Sit to and from Stand Minimal Assistance,1 Person Assistance,Use of Upper Extremities Equipment Transfer Assistive Device Gait Belt,Front Wheeled Walker Orthotic/Prosthetic Devices or Brace: No Transfers Transfer Destination Chair Transfer Technique Stand Step Pivot Transfer Ability Level of Assist Minimal Assistance,1 Person Assistance,Use of Upper Extremities Comments Mobility Comments Pt was lying supine in bed with elevated HOB as PT and SPT arrived. BP was 125/81 and HR was 83 in supine. Pt completed supine to sit at R EOB from flat bed with CGA and use of B bedrails. Pt had difficulty getting out of bed as he had a couple unsuccessful attempts before he was finally able to complete supine to sit. Pt relied heavily on the B bedrails. Pt then performed sit to stand with FWW and 1P min assist for stabilizing the FWW. FWW got slightly tilted over as pt pulled heavily on the FWW to stand up. Pt was able to tolerate WB well on the RLE in standing. After resting for ~1 min in standing , pt amb ~20 ft around foot of bed and out in the hallway with FWW CGA. Pt demonstrated step-through gait pattern with lack of R knee extension, decreased stride length, and decreased feet clearance. Pt also demonstrated impulsive movement, poor walker management, decreased safety awareness, and poor attention to precautions during mobilization. Pt then attempted to climb 1 PF step in the hallway. Pt was initally standing ~1 foot away from the step when he attempted to climb. Pt was instructed to step closer to the step before attempting to climb. After stepping closer to the step, pt was able to place the FWW on the step and as soon as he took a step with his L foot, his R knee buckled and collapsed. SPT Jean and PT Jerry were holding him up at ~half way to the floor. 4+ other staff members who were nearby ran over to help as soon as it happened and were able to get him in w/ c. Pt denied any hip pain. Pt was wheeled back to his room. Pt then performed sit to preventive medicine officer the room, amb ~8 ft to the chair, and sat down on the chair with FWW CGA. BP was 104 /74 and HR was 110 in sitting. Call light placed within reach. Communicated with VESSEL SLAGMAN to activate chair alarm. Gait Assessment Gait Gait Assistance Required: Contact Guard Assist Distance (Feet) 20 Able to Maintain Weight Bearing Status Yes During Gait Assistive Devices Assistive Device Gait Belt,Front Wheeled Walker Orthotic/Prosthetic Devices or Brace: No Gait Deviations General Gait Pattern Decreased Stride Length, Decreased Feet Clearance, Flexed Trunk Factors Limiting Gait Function Factors Limiting Gait Function Decreased Activity Tolerance, Decreased Strength,Difficulty Following Directions,Limited Range of Motion,Pain,Poor Balance,Poor Safety Awareness Comments Gait Comments See mobility comments. Stair Climbing Assessment Comments Stair Climbing Comments Attempted to climb 1 PF step but was unseccessful. See mobility comments. PT-Balance Assessment Sitting Balance and Reactions Static Sitting Balance Ability Normal Dynamic Sitting Balance Ability Normal Standing Balance and Reactions Static Standing Balance Ability Good Dynamic Standing Balance Ability Fair M5 PT-IP Objective Assessments Start: 12/23/19 08:26 Freq: NEEDED Status: Active Protocol: Document 12/23/19 10:27 DE (Rec: 12/23/19 11:31 DE [id number]) Orientation Orientation/Cognition Level of Alertness Alert Orientation Name,Age,Birthday,Month,Date, Year,Day of Week,Place, Situation Language Function Ability No Deficits Noted Safety Awareness Decreased Safety Awareness Memory Description No Deficits Noted Comments Pt reports he is alert but demonstrated decreased safety awareness, impulsive movement, and difficulty with following instructions. Gross Range of Motion Lower Extremity ROM Assessment Right Impaired Strength Lower Extremity Strength Assessment Right Impaired Coordination Assessment Gross Coordination Gross Coordination WNL Sensation Assessment Sensation Gross Sensation WNL Light Touch Intact M6 PT-IP Treatment Start: 12/23/19 08:26 Freq: NEEDED Status: Active Protocol: Document 12/23/19 10:27 DE (Rec: 12/23/19 11:31 DE [id number]) Physical Therapy Treatment Education Education Provided Precautions,Weight Bearing Status,Post-Op Packet,Safety M7 PT-IP Assessment and Plan Start: 12/23/19 08:26 Freq: NEEDED Status: Active Protocol: Document 12/23/19 10:27 DE (Rec: 12/23/19 11:31 DE [id number]) PT Summary Assessment and Plan Potential Rehabilitation Potential Good Status of Condition at Evaluation Stable Summary Impairments Pain,ROM,Strength,Balance, Sensation,Cognition,Bed Mobility,Transfers,Gait, Activity Tolerance Assessment Summary This is a low complexity evaluation for 59 yo male, Rudolph, s/p R SANCHEZ posterior approach POD1 with hx of L SANCHEZ posterior approach in october 2019. At baseline, pt was modified IND with use of FWW for all community and home amb. Pt was unable to amb more than 2 blocks at a time. Pt was IND for most ADLs but had difficulty with dressing, getting to and from toilet, and getting in and out of shower. Pt's did cooking and cleaning for him. On evaluation, pt is CGA for bed mobility, sit to stand, and amb with use of FWW. Pt attempted to climb 1 PF step but his R knee buckled and collapsed, which required 4P to get him in w/c. Pt was also very impulsive throughout the session and needed cues constantly, which is consistent from the last visit in October for his L SANCHEZ. Pt is not safe to d/c home at this point. Pt will need to perform 1 PF step with FWW without any LOB before d/c. PT anticipates pt will d/c home with assistance once he is able to perform PF step and medically cleared. PT will continue to assess and refine d/c recommendation. Pt will benefit from outpatient PT or possibly HH to improve strength, ROM, activity tolerance, and balance. Goals Bed Mobility Goal Standby Assistance Transfer Goal Standby Assistance Gait Goal Standby Assistance Gait Distance 100 Other Goals Pt will perform 1 PF step with FWW. Days to Meet Goals 3 Frequency of Treatment Frequency Of Treatment Twice a Day Treatment Plan Physical Therapy Treatment Plan Bed Mobility Training,Transfer Training,Gait Training, Therapeutic Exercise,Balance Retraining,Post Op Education, Discharge Planning,Hot or Cold Pack Other Recommendations and Next Treatment PF step without buckling the R Focus knee. Recommendations To Nursing Amount of Assist Needed 1 Person Assist Discharge Recommendations PT Discharge Recommendations Home with Assistance,Home Health,Outpatient PT Equipment Needed for Home Before Shower bench Discharge Transportation Needs at Discharge Private Vehicle This IE noted is written by SPT Jean Duque. It has been reviewed and approved by PT Brennen King
--- NOTE | 2019-12-23 14:41 | PT.IPTN ---
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) Surgery Performed Operation Date: 12/22/19 13:45 Actual Procedures p Total Hip Arthroplasty(Right) - Yeny Garza MD Physical Therapy Treatment Note M2 PT-IP Current Condition Start: 12/23/19 08:26 Freq: NEEDED Status: Active Protocol: Document 12/23/19 10:27 DE (Rec: 12/23/19 11:31 DE [id number]) Physical Therapy Current Condition Current Condition Evaluation Date 12/23/19 Treatment Diagnosis R SANCHEZ; Difficulty with walking Onset Date 12/22/19 Precautions Posterior Hip Precautions No Hip Flexion > 90 degrees,No Hip Internal Rotation,No Hip Adduction Weight Bearing Status Weight Bearing Status Weight Bear as Tolerated M3 PT-IP Subjective Start: 12/23/19 08:26 Freq: NEEDED Status: Active Protocol: Document 12/23/19 13:51 DE (Rec: 12/23/19 14:22 DE [id number]) Subjective Physical Therapy Visit Type Type Treatment Note Visit Start Time 13:08 Visit Stop Time 13:33 Total Visit Minutes 25 Notes SPT Jean led the session under direct supervision of PT Jerry throughout the entire session. Number of SPECIAL SERVICES DIRECTOR Visits 0 Physical Therapy Visit Comments Patient Comments I don't think I can do steps today. Patient Goals To return home. M4 PT-IP Mobility and Gait Start: 12/23/19 08:26 Freq: NEEDED Status: Active Protocol: Document 12/23/19 13:51 DE (Rec: 12/23/19 14:22 DE [id number]) PT-Bed Mobility Assessment Supine to Sit Supine to Sit Contact Guard Assistance,Head of Bed Elevated,Bedrails Scooting Scooting to Edge of Bed Contact Guard Assistance PT-Transfer Assessment Sit to and From Stand Sit to and from Stand Contact Guard Assistance,Use of Upper Extremities Equipment Transfer Assistive Device Gait Belt,Front Wheeled Walker Orthotic/Prosthetic Devices or Brace: No Transfers Transfer Destination Chair Transfer Technique Stand Step Pivot Transfer Ability Level of Assist Minimal Assistance,1 Person Assistance,Use of Upper Extremities Comments Mobility Comments Pt was lying supine in bed with elevated HOB as PT and SPT arrived. Pt completed supine to sit at R EOB from elevated HOB at ~45 deg with CGA and use of B bedrails. Pt was able to complete with one attempt. Pt then performed sit to stand with FWW CGA. Pt amb ~45 ft around foot of bed and out in the hallway with FWW CGA. Pt demonstrated step- through gait pattern with significant unsteadiness on his RLE. Pt was instructed to take shorter steps and slow down to walk more stable. Pt also had labored breathing during amb. Pt needed to sit down on w/c and take a break. After resting for ~2 min, pt stood up and amb ~45 ft back to the room with FWW CGA. Pt requested to use the bathroom and amb to the toilet. Pt was able to void in standing with FWW CGA. Pt then amb to bed and went to supine. Call light placed within reach. Gait Assessment Gait Gait Assistance Required: Contact Guard Assist Distance (Feet) 45 Able to Maintain Weight Bearing Status Yes During Gait Assistive Devices Assistive Device Gait Belt,Front Wheeled Walker Orthotic/Prosthetic Devices or Brace: No Gait Deviations General Gait Pattern Decreased Stride Length, Decreased Feet Clearance, Flexed Trunk Factors Limiting Gait Function Factors Limiting Gait Function Decreased Activity Tolerance, Decreased Strength,Difficulty Following Directions,Limited Range of Motion,Pain,Poor Balance,Poor Safety Awareness Comments Gait Comments See mobility comments. Stair Climbing Assessment Comments Stair Climbing Comments Not performed. PT-Balance Assessment Sitting Balance and Reactions Static Sitting Balance Ability Normal Dynamic Sitting Balance Ability Normal Standing Balance and Reactions Static Standing Balance Ability Good Dynamic Standing Balance Ability Fair M5 PT-IP Objective Assessments Start: 12/23/19 08:26 Freq: NEEDED Status: Active Protocol: Document 12/23/19 10:27 DE (Rec: 12/23/19 11:31 DE [id number]) Orientation Orientation/Cognition Level of Alertness Alert Orientation Name,Age,Birthday,Month,Date, Year,Day of Week,Place, Situation Language Function Ability No Deficits Noted Safety Awareness Decreased Safety Awareness Memory Description No Deficits Noted Comments Pt reports he is alert but demonstrated decreased safety awareness, impulsive movement, and difficulty with following instructions. Gross Range of Motion Lower Extremity ROM Assessment Right Impaired Strength Lower Extremity Strength Assessment Right Impaired Coordination Assessment Gross Coordination Gross Coordination WNL Sensation Assessment Sensation Gross Sensation WNL Light Touch Intact M6 PT-IP Treatment Start: 12/23/19 08:26 Freq: NEEDED Status: Active Protocol: Document 12/23/19 13:51 DE (Rec: 12/23/19 14:22 DE [id number]) Physical Therapy Treatment Exercises Exercises Ankle Pumps,Gluteal Sets,Quad Sets,Heel Slides Education Education Provided Precautions,Weight Bearing Status,Post-Op Packet,Safety M7 PT-IP Assessment and Plan Start: 12/23/19 08:26 Freq: NEEDED Status: Active Protocol: Document 12/23/19 13:51 DE (Rec: 12/23/19 14:22 DE [id number]) PT Summary Assessment and Plan Potential Rehabilitation Potential Good Status of Condition at Evaluation Stable Summary Impairments Pain,ROM,Strength,Balance, Sensation,Cognition,Bed Mobility,Transfers,Gait, Activity Tolerance Assessment Summary Pt tolerated treatment well. Pt did not want to try steps, but agreed to amb. Pt was able to amb further distance as he amb ~45 ft before needing to sit down and take a break. Pt then amb another ~45ft back to the room. Overall, pt was more attentive to instructions and was able to follow directions better during this session. Pt also demonstrated improved R knee extension during amb. However, he still demonstrated unsteadiness in his RLE and limited WB. Pt is not safe yet to d/c home at this point. CG training will be arranged with pt's for the next session. PT will continue to assess and refine d/c recommendations. Goals Bed Mobility Goal Standby Assistance Transfer Goal Standby Assistance Gait Goal Standby Assistance Gait Distance 100 Other Goals Pt will perform 1 PF step with FWW. Days to Meet Goals 3 Frequency of Treatment Frequency Of Treatment Twice a Day Treatment Plan Physical Therapy Treatment Plan Bed Mobility Training,Transfer Training,Gait Training, Therapeutic Exercise,Balance Retraining,Post Op Education, Discharge Planning,Hot or Cold Pack Other Recommendations and Next Treatment PF step without buckling the R Focus knee. Recommendations To Nursing Amount of Assist Needed 1 Person Assist Discharge Recommendations PT Discharge Recommendations Home with Assistance,Home Health,Outpatient PT Equipment Needed for Home Before Shower bench Discharge Transportation Needs at Discharge Private Vehicle This IE noted is written by SPT Jean Duque. It has been reviewed and approved by PT Brennen King
--- NOTE | 2019-12-23 14:41 | PC.NURSE ---
SHIFT NOTE: PATIENT HAD TROUBLE W/ KNEE BUCKLING DURING FIRST ATTEMPT WITH PHYSICAL THERAPY THIS AM. HIS KNEE BUCKLED IN [place] JUST BEFORE STEP TRAINING. THE KNEE COLLAPSED AND HE FELL RETIREMENT TO FLOOR, SEVERAL STAFF MEMBERS ABLE TO ASSIST HIM TO STANDING UNTIL ASSISTED TO AND BACK TO . CHANDA EDVIN PRESENT AND ALSO CAME TO ASSIST. DR. RILEY CALLED THIS AFTERNOON TO CHECK ON PATIENT. UPDATED ON EPISODE THIS AM. SHE STATED SHE WOULD RATHER HIM STAY ANOTHER DAY IF THERE IS ANY CONCERN ABOUT HIM FALLING. PATIENT DID BETTER AFTERNOON PHYSICAL THERAPY BUT IS 2 P ASSIST AND BENEFITS FROM STAYING ANOTHER DAY. DC ORDER CANCELLED. CALLED SPOUSE WHO AGREED TO COME IN TOMORROW AM AT 1000 FOR PHYSICAL THERAPY TRAINING. OTHERWISE IS DOING WELL, DENIES PAIN. CMS INTACT, EQUAL STRENGTH ALL EXTREMITIES, VOIDING AND PASSING FLATUS. DID HAVE EPISODE OF HTN AFTER AFTERNOON THERAPY, BUT MUCH IMPROVED AFTER RECHECKED. STATES DOES NOT TAKE ANTI-HYPERTENSIVES AT HOME.
[2019-12-23] MEDS: ATORVASTATIN 20 MG TABLET PO (21:10)
[2019-12-23] MEDS: SODIUM CHLORIDE 0.9% FLUSH 10 ML IV (21:10)
[2019-12-24 00:31] VITALS: BP 121/76; PULSE 62; RESP 16; TEMP 36.4; O2SAT 95
[2019-12-24] MEDS: IBUPROFEN 400 MG TABLET PO ×3 (01:30→08:42)
[2019-12-24 03:09] VITALS: BP 114/72; PULSE 78; RESP 16; TEMP 36.2; O2SAT 93
[2019-12-24 07:30] VITALS: BP 127/76; PULSE 66; RESP 16; TEMP 36.1; O2SAT 95
--- NOTE | 2019-12-24 08:38 | PM.PN.1 ---
Subjective Subjective Date Patient Seen: 12/24/19 Time Patient Seen: 08:38 Interval history: Patient is POD#2 s/p right posterior SANCHEZ with Dr. Garza. He had issues with his right leg buckling yesterday and fell while attempting stair climbing in the AM. He was immediately assisted and evaluated with no issues at the time. He denies any new pain or symptoms related to this. He was able to mobilize with PT in the afternoon but has not attempted stairs yet. Pain has been controlled with Tylenol and Advil. He is voiding appropriately and tolerating a diet. He has no complaints. Exam Vital Signs (past 8 hours): - 12/24/19 03:09 12/24/19 07:30 Temperature 97.1 F L 96.9 F L Pulse Rate 78 66 Respiratory Rate 16 16 Blood Pressure 114/72 127/76 Pulse Oximetry 93 95 Oxygen Delivery Method Room Air Oxygen Flow Rate 0 Narrative Exam Narrative: 59 year old male resting in bed, alert and oriented in no acute distress. YULIANA dressing in place is CDI and functional. Hemovac in place with <5cc in reservoir. Patient with weak straight leg raise. 5/5 ankle dorsiflexion/plantar flexion. Calves soft, nontender bilaterally. Objective Labs Result Diagrams: 12/23/19 07:33 Assessment & Plan Assessment & Plan narrative: Patient POD#2 s/p right SANCHEZ. Posterior hip precautions. Will mobilize with PT today and will need to complete caregiver training/stair training prior to discharge. Continue ASA 81mg BID for DVT prophylaxis. His is available as caregiver at home. Discharge to home this afternoon if cleared by PT.
[2019-12-24] MEDS: DOCUSATE 100 MG CAPSULE PO (08:41)
[2019-12-24] MEDS: ASPIRIN EC 81 MG TABLET PO (08:41)
[2019-12-24] MEDS: ACETAMINOPHEN 325 MG TABLET 650 MG PO (08:42)
[2019-12-24] MEDS: SODIUM CHLORIDE 0.9% FLUSH 10 ML IV (08:44)
--- NOTE | 2019-12-24 10:52 | PT.IPTN ---
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) Surgery Performed Operation Date: 12/22/19 13:45 Actual Procedures p Total Hip Arthroplasty(Right) - Yeny Garza MD Physical Therapy Treatment Note M2 PT-IP Current Condition Start: 12/23/19 08:26 Freq: NEEDED Status: Active Protocol: Document 12/23/19 10:27 DE (Rec: 12/23/19 11:31 DE [id number]) Physical Therapy Current Condition Current Condition Evaluation Date 12/23/19 Treatment Diagnosis R SANCHEZ; Difficulty with walking Onset Date 12/22/19 Precautions Posterior Hip Precautions No Hip Flexion > 90 degrees,No Hip Internal Rotation,No Hip Adduction Weight Bearing Status Weight Bearing Status Weight Bear as Tolerated M3 PT-IP Subjective Start: 12/23/19 08:26 Freq: NEEDED Status: Active Protocol: Document 12/24/19 09:55 KS (Rec: 12/24/19 12:07 KS [id number]) Subjective Physical Therapy Visit Type Type Treatment Note Visit Start Time 09:55 Visit Stop Time 10:52 Total Visit Minutes 28 Notes Split treatment 9:55-10:06, 10 :35-10:52. Pts present for caregiver training. Number of SHELLFISH MEAT SEPARATOR OPERATOR Visits 1 Physical Therapy Visit Comments Patient Goals To return home. M4 PT-IP Mobility and Gait Start: 12/23/19 08:26 Freq: NEEDED Status: Active Protocol: Document 12/24/19 09:55 KS (Rec: 12/24/19 12:07 KS [id number]) PT-Bed Mobility Assessment Supine to Sit Supine to Sit Minimal Assistance,1 Person Assistance Scooting Scooting to Edge of Bed Contact Guard Assistance PT-Transfer Assessment Sit to and From Stand Sit to and from Stand Contact Guard Assistance,Use of Upper Extremities Equipment Transfer Assistive Device Gait Belt,Front Wheeled Walker Orthotic/Prosthetic Devices or Brace: No Transfers Transfer Destination Chair Transfer Technique pt ambulated w/ FWW Transfer Ability Level of Assist Minimal Assistance,1 Person Assistance,Use of Upper Extremities Comments Mobility Comments Pt in bed upon arrival from therapy. Reviewed LE strengthening exercises including ankle pumps, quad sets, heel slides, and glute squeezes. Pts in room for second half of treatment. Pts provided Min A for pt sup<>sit. CGA for scooting EOB < pts able to apply gait belt and CGA for sit<>Stand w/ FWW. Pt then performed 30 seconds weight shifting, marching in place and 2x 15 second SLS on R side for quad activation. He then ambulated ~30 ft to platform step in hallway. Pt ascended/descended platform step w/ FWW w/ CGA by SHELLFISH MEAT SEPARATOR OPERATOR and pts on first step, CGA and cues by pts on second step. Pt and state they feel safe to ascend step into home and no knee buckling noted today. Pt returned to room and chair CGA . Pt stated he will be sleeping in chair upon d/c home. Pt left in room w/ and all needs in reach. Gait Assessment Gait Gait Assistance Required: Contact Guard Assist,1 Person Assist Distance (Feet) 60 Able to Maintain Weight Bearing Status Yes During Gait Assistive Devices Assistive Device Gait Belt,Front Wheeled Walker Orthotic/Prosthetic Devices or Brace: No Gait Deviations General Gait Pattern Decreased Stride Length, Decreased Feet Clearance, Flexed Trunk Factors Limiting Gait Function Factors Limiting Gait Function Decreased Activity Tolerance, Decreased Strength,Difficulty Following Directions,Limited Range of Motion,Pain,Poor Balance,Poor Safety Awareness Comments Gait Comments Pt ambulated ~60 ft w/ FWW and CGA provided by . Pt demonstrated good use of FWW and had no knee buckling present throughout treatment. Stair Climbing Assessment Evaluation Level of Assist On Stairs Contact Guard Assistance,1 Person Assistance Devices Stair Climbing Assistive Devices Front Wheel Walker Technique/Endurance Stair Climbing Direction Ascend and Descend Stair Climbing Technique Step to Step Number of Steps Climbed 1 Stair Climbing Set # Repetitions (reps) 2 Comments Stair Climbing Comments Pt ascended/descended 1x platform step w/ FWW x2 w/ CGA by pts and SHELLFISH MEAT SEPARATOR OPERATOR on first step and CGA by just pts on second step. No R knee buckling. Pt and feel safe to return home today. PT-Balance Assessment Sitting Balance and Reactions Static Sitting Balance Ability Normal Dynamic Sitting Balance Ability Normal Standing Balance and Reactions Static Standing Balance Ability Good Dynamic Standing Balance Ability Fair M5 PT-IP Objective Assessments Start: 12/23/19 08:26 Freq: NEEDED Status: Active Protocol: Document 12/23/19 10:27 DE (Rec: 12/23/19 11:31 DE [id number]) Orientation Orientation/Cognition Level of Alertness Alert Orientation Name,Age,Birthday,Month,Date, Year,Day of Week,Place, Situation Language Function Ability No Deficits Noted Safety Awareness Decreased Safety Awareness Memory Description No Deficits Noted Comments Pt reports he is alert but demonstrated decreased safety awareness, impulsive movement, and difficulty with following instructions. Gross Range of Motion Lower Extremity ROM Assessment Right Impaired Strength Lower Extremity Strength Assessment Right Impaired Coordination Assessment Gross Coordination Gross Coordination WNL Sensation Assessment Sensation Gross Sensation WNL Light Touch Intact M6 PT-IP Treatment Start: 12/23/19 08:26 Freq: NEEDED Status: Active Protocol: Document 12/24/19 09:55 KS (Rec: 12/24/19 12:07 PA [id number]) Physical Therapy Treatment Exercises Exercises Ankle Pumps,Gluteal Sets,Quad Sets,Heel Slides Education Education Provided Precautions,Weight Bearing Status,Post-Op Packet,Safety Other Treatments Other Treatment Performed Successfully completed caregiver training w/ pts . M7 PT-IP Assessment and Plan Start: 12/23/19 08:26 Freq: NEEDED Status: Active Protocol: Document 12/24/19 09:55 KS (Rec: 12/24/19 12:07 PA [id number]) PT Summary Assessment and Plan Potential Rehabilitation Potential Good Status of Condition at Evaluation Stable Summary Impairments Pain,ROM,Strength,Balance, Sensation,Cognition,Bed Mobility,Transfers,Gait, Activity Tolerance Assessment Summary Pt CGA to Min A for bed mobility, CGA for ambulation and platform step w/ FWW. Completed caregiver training w / pts who was able to successfully apply gait belt and provide pt w/ appropriate assist and cues for bed mobility, ambulation, and stairs. Pt able to ambulate ~ 60 ft and ascend/descend 2 steps w/ FWW. Pt and state they feel safe to return home today. Goals Bed Mobility Goal Standby Assistance Transfer Goal Standby Assistance Gait Goal Standby Assistance Gait Distance 100 Other Goals Pt will perform 1 PF step with FWW. Days to Meet Goals 3 Frequency of Treatment Frequency Of Treatment Twice a Day Treatment Plan Physical Therapy Treatment Plan Bed Mobility Training,Transfer Training,Gait Training, Therapeutic Exercise,Balance Retraining,Post Op Education, Discharge Planning,Hot or Cold Pack Other Recommendations and Next Treatment PF step without buckling the R Focus knee. Recommendations To Nursing Amount of Assist Needed 1 Person Assist Discharge Recommendations PT Discharge Recommendations Home with Assistance,Home Health,Outpatient PT Equipment Needed for Home Before Shower bench Discharge Transportation Needs at Discharge Private Vehicle
--- NOTE | 2019-12-24 11:02 | CM.DPC ---
Addendum entered by Concepción Jha LPN 12/24/19 14:04: Pt now cleared for home and will leave shortly in company of his . Original Note: DCP: continued: Leon Byers was here this morning and has put a new d/c order for today. She explains in her progress note that she wants pt to continue to work with PT today with incorportation of stairs and caregiver training. She notes that the dc is dependent upon clearance from PT. Will be following.
--- NOTE | 2019-12-24 11:42 | PC.NURSE ---
Patient worked with physical therapy and is going to be discharged home soon. He has an aquacel dressing to his r. hip that is cdi. in room. IV will be taken out and hemovac. Given tylenol and ibuprofen for pain.
== END 2019-12-24 12:30 | disposition home or self-care (01) ==
LOC: OR 14:21 → AC 14:21
PROVIDERS: Admitting Provider Orthopaedic Surgery; PCP Family Medicine; Referring Provider Orthopaedic Surgery; Visit Provider Orthopaedic Surgery
PROC: 0SR90JZ Replacement of Right Hip Joint with Synthetic Substitute, Open Approach (ICD-10-PCS; CPT 27130; principal; 2019-12-22 13:45)
DX: M87.051 Idiopathic aseptic necrosis of right femur (principal); M16.11 Unilateral primary osteoarthritis, right hip; E66.9 Obesity, unspecified; R73.03 Prediabetes; K21.9 Gastro-esophageal reflux disease without esophagitis; Z68.37 Body mass index [BMI] 37.0-37.9, adult
CPT/HCPCS: 27130; 36415; 72170; 73502; 85014; 85018; 94760; 97110; 97116; 97161; 97530; C1776; G0378; C9290; J0690; J2250; J2704; J3010